=== PATIENT | male | born 1955 | race Hispanic/Latino ===

== ENCOUNTER 2016-09-16 19:25 | Emergency (ER) | payer MEDICARE ==
[2016-09-16 19:39] VITALS: O2SAT 99
[2016-09-16] MEDS ORDERED: Sodium Chloride 0.9% 1,000 ML IV STA (20:01)
[2016-09-16 20:31] LABS: BASO # 0.1 K/uL (0.0-0.2); BASO % 0.9 % (0.0-2.0); EOS # 0.2 K/uL (0.0-0.7); EOS % 2.3 % (0.0-4.0); HEMATOCRIT 40.2 % (35.0-51.0); LYMPH # 2.6 K/uL (1.0-4.3); LYMPH % 26.9 % (20.0-40.0); MEAN CELL VOLUME 87.4 fl (80.0-94.0); MEAN CORPUSCULAR HEMOGLOBIN 29.3 pg (27.0-31.0); MEAN CORPUSCULAR HGB CONC 33.5 g/dL (33.0-37.0); MEAN PLATELET VOLUME 9.5 fl (7.2-11.7); MONO # 0.7 K/uL (0.0-0.8); MONO % 7.5 % (0.0-10.0); NEUT # 5.9 K/uL (1.8-7.0); NEUT % 62.4 % (50.0-75.0); NRBC % 0.1 % (0.0-0.0); RED CELL DISTRIBUTION WIDTH 13.6 % (11.5-14.5); WHITE BLOOD COUNT 9.5 K/uL (4.8-10.8)
[2016-09-16 20:36] LABS: RBC URINE 3 /hpf (0-3); URINE BACTERIA FEW (<OCC); URINE BILIRUBIN NEGATIVE (NEGATIVE); URINE BLOOD NEGATIVE (NEGATIVE); URINE COLOR STRAW (YELLOW); URINE GLUCOSE (UA) >=500 mg/dL (Normal); URINE KETONE TRACE mg/dL (NEGATIVE); URINE LEUKOCYTE ESTERASE NEG Leu/uL (Negative); URINE PROTEIN NEGATIVE (NEGATIVE); URINE UROBILINOGEN 0.2-1.0 mg/dL (0.2-1.0); WBC URINE < 1 /hpf (0-5)
[2016-09-16 20:38] LABS: ALB/GLOB RATIO 1.2 (1.0-2.1); ALKALINE PHOSPHATASE 103 U/L (38-126); ALT/SGPT 38 U/L (21-72); AST/SGOT 20 U/L (17-59); BILIRUBIN,TOTAL 0.2 mg/dl (0.2-1.3); BLOOD UREA NITROGEN 14 mg/dl (9-20); CALCIUM 9.4 mg/dL (8.4-10.2); CARBON DIOXIDE 23 mmol/L (22-30); CHLORIDE 104 mmol/L (98-107); GFR AFRICAN-AMERICAN > 60; GLUCOSE,RANDOM 338 mg/dL (75-110); LIPASE 130 U/L (23-300); MAGNESIUM 1.9 MG/DL (1.6-2.3); PHOSPHOROUS 2.6 mg/dl (2.5-4.5); POTASSIUM 4.3 MMOL/L (3.6-5.0); SODIUM 137 mmol/l (132-148); TOTAL PROTEIN 7.4 G/DL (6.3-8.2)
[2016-09-16 21:06] LABS: THYROID STIMULATING HORMONE 1.23 mIU/ML (0.46-4.68)
[2016-09-16 21:17] LABS: PARTIAL THROMBOPLASTIN TIME 24.1 SECONDS (23.3-32.5)
--- NOTE | 2016-09-16 21:23 | ED PDOC ---
Hyperglycemia/Hypoglycemia Time Seen by Provider: 09/16/16 19:43 Chief Complaint (Nursing): Abnormal Labs Chief Complaint (Provider): Hyperglycemia History Per: Patient History/Exam Limitations: no limitations Onset/Duration Of Symptoms: Gradual, Other (x1 year) Current Symptoms Are (Timing): Still Present Current Diabetic Medications: None Associated Infectious Symptoms: Other (weakness) : The patient does not have any of the infectious symptoms listed except for those marked. Treatment Prior To Provider Evaluation: None Additional Complaint(s): 61 year old male presents to ED for an evaluation of possible hyperglycemia and has no past medical history. Patient notes increasing frequency/intensity of (+ ) urinary frequency, weakness, thirst, lightheadedness, and numbness to extremities x1 year. Notes that the visiting nurse discussed bloodwork results of elevated hemoglobin a1c. (+) pallor, malaise, and fatigue. Patient desires further evaluation of symptoms. PCP: [facility] - [place], [place] Past Medical History Reviewed: Historical Data, Nursing Documentation, Vital Signs Vital Signs: Last Vital Signs Temp 98.2 F 09/16/16 19:34 Pulse 105 H 09/16/16 19:34 Resp 16 09/16/16 19:34 BP 132/78 09/16/16 19:34 Pulse Ox 99 09/16/16 19:34 - Medical History PMH: No Chronic Diseases - Surgical History Surgical History: No Surg Hx - Family History Family History: States: No Known Family Hx - Social History Current smoker - smoking cessation education provided: No Ex-Smoker (has not smoked in the last 12 months): No Alcohol: None Drugs: Denies - Home Medications Home Medications: Ambulatory Orders Medication Instructions Recorded metFORMIN [glucOPHAGE] 500 mg PO DAILY #30 tab 09/16/16 - Allergies Allergies/Adverse Reactions: Allergies Allergy/AdvReac Type Severity Reaction Status Date / Time No Known Allergies Allergy Verified 09/16/16 19:34 Review of Systems ROS Statement: Except As Marked, All Systems Reviewed And Found Negative Constitutional: Positive for: Weakness, Malaise, Other (fatigue) Gastrointestinal: Positive for: Other (polydipsia) Genitourinary Male: Positive for: Frequency Skin: Positive for: Other (pallor) Neurological: Positive for: Numbness (to extremities), Other (lightheadedness) Physical Exam - Reviewed Nursing Documentation Reviewed: Yes Vital Signs Reviewed: Yes - Physical Exam Appears: Positive for: Non-toxic, No Acute Distress (Tired appearing) Head Exam: Positive for: ATRAUMATIC Skin: Positive for: Pallor (marked) Eye Exam: Positive for: Normal appearance ENT: Positive for: Other (tacky mucous membranes) Neck: Positive for: Normal Cardiovascular/Chest: Positive for: Regular Rate, Rhythm Respiratory: Negative for: Respiratory Distress Gastrointestinal/Abdominal: Positive for: Normal Exam Extremity: Positive for: Normal ROM. Negative for: Deformity Neurologic/Psych: Positive for: Alert, Oriented. Negative for: Motor/Sensory Deficits - Laboratory Results Result Diagrams: 09/16/16 20:20 09/16/16 20:20 - ECG ECG: Positive for: Interpreted By Me ECG Rhythm: Positive for: Sinus Rhythm, ST/T Changes O2 Sat by Pulse Oximetry: 99 (RA) Pulse Ox Interpretation: Normal Medical Decision Making Medical Decision Makin Initial impression: diabetes DDx: dehydration, electrolyte abnormality, DKA, anemia, ACS Initial plan: * T&S * ABG * EKG * Labs * Lipase * Magnesium * Phosphorus * TSH * Trop I * NS IV * BCx * UCx * UA 10p Pt feels better. HR improved. Color improved. Labs demonstrate hyperglycemia , >500 glucose and trace ketones in UA, otherwise no clnically significant lab abnormalities. DW pt and family findings and plan of care. Pt eager to go home. Scribe Attestation: Documented by Alesha Hanson acting as a scribe for Arminda Cleveland MD. Scribe Attestation: All medical record entries made by the Scribe were at my direction and personally dictated by me. I have reviewed the chart and agree that the record accurately reflects my personal performance of the history, physical exam, medical decision making, and the department course for this patient. I have also personally directed, reviewed, and agree with the discharge instructions and disposition. Disposition - Clinical Impression Clinical Impression: Hyperglycemia Counseled Patient/Family Regarding: Studies Performed, Diagnosis, Need For Followup, Rx Given - Disposition Disposition: Routine/Home Disposition Time: 22:00 Condition: IMPROVED Additional Instructions: SEE YOUR DOCTOR SCHEDULED TOMORROW Prescriptions: metFORMIN [glucOPHAGE] 500 mg PO DAILY #30 tab Instructions: Diabetic Hyperglycemia (ED)
[2016-09-16 21:33] LABS: ABG ALLEN TEST YES; ARTERIAL BLOOD GAS HCO3 24.7 mmol/L (21-28); ARTERIAL BLOOD GAS PH 7.42 (7.35-7.45); ARTERIAL BLOOD GAS PO2 73 mm/Hg (80-100)
[2016-09-16] MEDS ORDERED: Insulin Regular 100 units/ml SC STA (21:43)
[2016-09-16] MEDS ORDERED: Insulin Regular 100 units/ml ONE (21:52)
[2016-09-16 22:21] VITALS: BP 136/76; PULSE 88; RESP 18; TEMP 98
--- NOTE | 2016-09-17 12:24 | CARD ---
APPROVED REPORT EKG Measurement Heart [id number] <Conclusion> Normal sinus rhythm Moderate voltage criteria for LVH, may be normal variant Borderline ECG
== END 2016-09-16 22:39 | disposition home or self-care (01) ==
LOC: H.ER 19:25
DX: E11.65 Type 2 diabetes mellitus with hyperglycemia (principal); Z79.84 Long term (current) use of oral hypoglycemic drugs
CPT/HCPCS: 80053; 81003; 82803; 82948; 83690; 83735; 84100; 84443; 84484; 85025; 85610; 85730; 86850; 86900; 87040; 87086; 93005; 96360; 96372; 99282; J7040